=== PATIENT | female | born 1955 | race American Indian/Alaskan Native ===

== ENCOUNTER 2018-06-17 08:18 | Outpatient (CLI) | payer OTHER ==
--- NOTE | 2018-06-17 14:18 | Mammography Report ---
BILATERAL DIGITAL SCREENING MAMMOGRAM with CAD: 06/17/18 08:18:00 CLINICAL: Routine screening. COMPARISON:08/14/16 FINDINGS: The breasts are almost entirely fatty. No mass, architectural distortion or suspicious calcifications. IMPRESSION: No mammographic evidence of malignancy. BI-RADS CATEGORY: 1 - - Negative RECOMMENDATION: Routine mammographic screening in one year. COMMENT: Patient follow-up letters are generated by our [employer] application.
== END 2018-06-17 08:19 | disposition home or self-care (01) ==
LOC: MAMMO 08:18
PROVIDERS: ATTEND Internal Medicine
DX: Z12.31 Encounter for screening mammogram for malignant neoplasm of breast (principal)
CPT/HCPCS: 77067

== ENCOUNTER 2019-01-04 21:40 | Emergency (ER) | payer OTHER ==
--- NOTE | 2019-01-04 21:57 | Emergency Department Report ---
Blank Doc - Documentation Documentation: This is a 63-year-old female that presents with hypertension. Patient denies any headache. Stated has some blurry vision. This initial assessment diagnostic orders/clinical plan/treatment(s) is/are subject to change based on patient's health status, clinical progression and re- assessment by fellow clinical providers in the ED. Further treatment and workup at subsequent clinical providers discretion. Patient/guardians urged not to elope from ED s their condition may be serious if not clinically assessed and managed. Initial orders include: 1-Patient sent to MAIN ED for further evaluation and treatment
[2019-01-04 22:31] VITALS: BP 153/58
[2019-01-04 22:47] LABS: Basophils # (Auto) 0.1 K/mm3 (0.0-0.1); Basophils % (Auto) 0.6 % (0.0-1.8); Eosinophils # (Auto) 0.1 K/mm3 (0.0-0.4); Eosinophils % (Auto) 1.1 % (0.0-4.3); Hematocrit 41.8 % (30.3-42.9); Hemoglobin 13.8 gm/dl (10.1-14.3); Lymphocytes % (Auto) 25.7 % (13.4-35.0); Mean Corpuscular HGB Conc 33 % (30-34); Mean Corpuscular Volume 98 fl (79-97); Monocytes # (Auto) 1.1 K/mm3 (0.0-0.8); Monocytes % (Auto) 9.2 % (0.0-7.3); Platelet Count 241 K/mm3 (140-440); Red Blood Count 4.25 M/mm3 (3.65-5.03); Red Cell Distribution Width 12.3 % (13.2-15.2)
[2019-01-04 23:08] LABS: Alanine Aminotransferase 33 units/L (7-56); Albumin 3.6 g/dL (3.9-5); BUN/Creatinine Ratio 27; Blood Urea Nitrogen 19 mg/dL (7-17); Calcium 9.3 mg/dL (8.4-10.2); Hemolysis Index 15
--- NOTE | 2019-01-05 | Emergency Department Report ---
ED General Adult HPI - General Chief complaint: High BP Stated complaint: HBP Time Seen by Provider: 01/04/19 21:56 Source: patient Mode of arrival: Ambulatory Limitations: No Limitations - History of Present Illness Initial comments: 63-year-old female with history of hypertension presents the ED with elevated blood pressures at home. She states her blood pressure at home was 191/98. Patient reports she is compliant with her blood pressure medication. Patient denies headache, chest pain, nausea, vomiting. Patient states she had mild blurred vision, now resolved. -: This evening Severity scale (0 -10): 5 Improves with: none Worsens with: none Associated Symptoms: denies: chest pain, fever/chills, headaches, nausea/vo miting, shortness of breath Treatments Prior to Arrival: none - Related Data Allergies Allergy/AdvReac Type Severity Reaction Status Date / Time No Known Allergies Allergy Unverified 08/23/15 12:53 ED Review of Systems ROS: Stated complaint: HBP Other details as noted in HPI Comment: All other systems reviewed and negative Constitutional: denies: chills, fever Eyes: other (reports blurred vision earlier) Respiratory: denies: shortness of breath Cardiovascular: denies: chest pain Gastrointestinal: denies: nausea, vomiting Neurological: denies: headache, weakness, numbness, paresthesias, abnormal gait ED Past Medical Hx - Past Medical History Hx Hypertension: Yes - Surgical History Additional Surgical History: bilateral Breast reduction - Social History Smoking Status: Never Smoker Substance Use Type: None ED Physical Exam - General Limitations: No Limitations General appearance: alert, in no apparent distress - Head Head exam: Present: atraumatic, normocephalic - Eye Eye exam: Present: normal appearance - ENT ENT exam: Present: mucous membranes moist - Neck Neck exam: Present: normal inspection - Respiratory Respiratory exam: Present: normal lung sounds bilaterally. Absent: respiratory distress - Cardiovascular Cardiovascular Exam: Present: regular rate, normal rhythm - GI/Abdominal GI/Abdominal exam: Present: soft. Absent: distended, tenderness - Extremities Exam Extremities exam: Present: normal inspection - Neurological Exam Neurological exam: Present: alert, oriented X3, CN II-XII intact. Absent: motor sensory deficit - Psychiatric Psychiatric exam: Present: normal affect, normal mood - Skin Skin exam: Present: warm, dry, intact, normal color ED Course Vital Signs 01/04/19 01/04/19 01/04/19 21:45 22:15 22:30 Temperature 98.1 F 98.1 F Pulse Rate 66 66 Respiratory 16 15 Rate Blood Pressure 202/80 Blood Pressure 153/58 [Right] O2 Sat by Pulse 98 96 97 Oximetry ED Medical Decision Making - Lab Data Result diagrams: 01/04/19 22:08 01/04/19 22:08 - Medical Decision Making 63-year-old female presents to the ED with elevated blood pressures at home. Blood pressure improved to 153/58 here in ED. No focal neuro deficits, neuro exam normal. Labs unremarkable. Patient advised to keep a log of her blood pressures at home, and follow up with her PCP. Return precautions given. Critical care attestation.: If time is entered above; I have spent that time in minutes in the direct care of this critically ill patient, excluding procedure time. ED Disposition Clinical Impression: Essential hypertension Disposition: DC-01 TO HOME OR SELFCARE Is pt being admited?: No Condition: Stable Instructions: Hypertension (ED) Referrals: PRIMARY CARE [Primary Care Provider] - 3-5 Days Time of Disposition: 00:00
== END 2019-01-05 00:10 | disposition home or self-care (01) ==
LOC: ED 21:40
DX: I10 Essential (primary) hypertension (principal)
CPT/HCPCS: 36415; 80053; 85025

== ENCOUNTER 2019-06-01 17:49 | Emergency (ER) | payer OTHER ==
--- NOTE | 2019-06-01 18:00 | Event Note ---
ED Screening Note ED Screening Note: states that her blood pressure was elevated at her doctors appointment Dr. Thompson, PCP states her pressure was 200/80 pt states she had some lightheadedness states over the last couple days had some high sugar/high salt food pt takes metoprolol and losartan for her pressure, states she only took losartan today and takes metoprolol at night This initial assessment/diagnostic orders/clinical plan/treatment(s) is/are subject to change based on patients health status, clinical progression and re-assessment by fellow clinical providers in the ED. Further treatment and workup at subsequent clinical providers discretion. Patient/guardian urged not to elope from the ED as their condition may be serious if not clinically assessed and managed. Initial orders include: labs
[2019-06-01 18:36] LABS: Basophils # (Auto) 0.1 K/mm3 (0.0-0.1); Basophils % (Auto) 0.7 % (0.0-1.8); Eosinophils # (Auto) 0.1 K/mm3 (0.0-0.4); Eosinophils % (Auto) 1.2 % (0.0-4.3); Hematocrit 43.9 % (30.3-42.9); Hemoglobin 14.9 gm/dl (10.1-14.3); Lymphocytes # (Auto) 2.9 K/mm3 (1.2-5.4); Lymphocytes % (Auto) 29.7 % (13.4-35.0); Mean Corpuscular HGB Conc 34 % (30-34); Mean Corpuscular Hemoglobin 34 pg (28-32); Mean Corpuscular Volume 100 fl (79-97); Monocytes # (Auto) 0.7 K/mm3 (0.0-0.8); Monocytes % (Auto) 7.4 % (0.0-7.3); Platelet Count 222 K/mm3 (140-440); Red Blood Count 4.41 M/mm3 (3.65-5.03); Red Cell Distribution Width 13.2 % (13.2-15.2)
[2019-06-01 18:59] LABS: Alanine Aminotransferase 24 units/L (7-56); Albumin 3.7 g/dL (3.9-5); BUN/Creatinine Ratio 17; Blood Urea Nitrogen 12 mg/dL (7-17); Calcium 9.2 mg/dL (8.4-10.2); Hemolysis Index 24
--- NOTE | 2019-06-01 19:52 | Emergency Department Report ---
ED General Adult HPI - General Chief complaint: High BP Stated complaint: BP HIGH Time Seen by Provider: 06/01/19 17:56 Source: patient Mode of arrival: Ambulatory Limitations: No Limitations - History of Present Illness Initial comments: Patient is 63 years old female with history of hypertension on hydrochlorothiazide/losartan and metoprolol. Patient presented to the ER from her primary care physician after found to have a blood pressure of 216/115. Patient denied any headache, weakness numbness or tingling sensation. Patient also denies any chest pain or shortness of breath. - Related Data Allergies Allergy/AdvReac Type Severity Reaction Status Date / Time No Known Allergies Allergy Unverified 08/23/15 12:53 ED Review of Systems ROS: Stated complaint: BP HIGH Other details as noted in HPI Comment: All other systems reviewed and negative Constitutional: denies: chills, fever Respiratory: denies: cough, orthopnea, shortness of breath, SOB with exertion, SOB at rest, wheezing Cardiovascular: denies: chest pain, palpitations Gastrointestinal: denies: abdominal pain, nausea, vomiting Musculoskeletal: denies: back pain Neurological: denies: headache, weakness, numbness, paresthesias, confusion ED Past Medical Hx - Past Medical History Previous Medical History?: Yes Hx Hypertension: Yes - Surgical History Past Surgical History?: Yes Additional Surgical History: bilateral Breast reduction - Social History Smoking Status: Never Smoker Substance Use Type: Alcohol ED Physical Exam - General Limitations: No Limitations General appearance: alert, in no apparent distress - Head Head exam: Present: atraumatic, normocephalic, normal inspection - Eye Eye exam: Present: normal appearance, PERRL - ENT ENT exam: Present: normal exam, normal orophraynx, mucous membranes moist - Neck Neck exam: Present: normal inspection, full ROM. Absent: tenderness, meningismus, lymphadenopathy, thyromegaly - Respiratory Respiratory exam: Present: normal lung sounds bilaterally - Cardiovascular Cardiovascular Exam: Present: regular rate, normal rhythm, normal heart sounds - GI/Abdominal GI/Abdominal exam: Present: soft, normal bowel sounds. Absent: distended, tenderness, guarding, rebound, rigid, organomegaly, mass, bruit, pulsatile mass, hernia - Extremities Exam Extremities exam: Present: normal inspection, full ROM, normal capillary refill. Absent: calf tenderness - Back Exam Back exam: Present: normal inspection, full ROM. Absent: tenderness, CVA tenderness (R), CVA tenderness (L), muscle spasm, paraspinal tenderness, vertebral tenderness - Neurological Exam Neurological exam: Present: alert, oriented X3, CN II-XII intact, normal gait, reflexes normal - Psychiatric Psychiatric exam: Present: normal mood - Skin Skin exam: Present: warm, intact, normal color ED Course Vital Signs 06/01/19 06/01/19 06/01/19 17:56 19:55 21:02 Temperature 97.9 F Pulse Rate 63 55 L 58 L Respiratory 16 18 18 Rate Blood Pressure 216/91 Blood Pressure 211/106 182/86 [Right] O2 Sat by Pulse 98 97 97 Oximetry 06/01/19 21:52 Temperature Pulse Rate 61 Respiratory 19 Rate Blood Pressure Blood Pressure 167/81 [Right] O2 Sat by Pulse 97 Oximetry ED Medical Decision Making - Lab Data Result diagrams: 06/01/19 18:15 06/01/19 18:15 - Medical Decision Making Patient is 63 years old female with history of hypertension on hydrochlorothiazide/losartan and metoprolol. Patient presented to the ER from her primary care physician after found to have a blood pressure of 216/115. Patient denied any headache, weakness numbness or tingling sensation. Patient also denies any chest pain or shortness of breath. Patient received clonidine 0.2 mg, blood pressure improved to 167/81. Patient still denying any chest pain, shortness of breath, weakness numbness or tingling sensation. Patient will be discharged home and advised to follow-up with her primary care physician in the next 2-3 days and to return to the ER if symptoms are not improved. Critical care attestation.: If time is entered above; I have spent that time in minutes in the direct care of this critically ill patient, excluding procedure time. ED Disposition Clinical Impression: Accelerated hypertension Disposition: DC-01 TO HOME OR SELFCARE Is pt being admited?: No Condition: Stable Instructions: Hypertension (ED) Referrals: PRIMARY CARE, [Primary Care Provider] - 3-5 Days
[2019-06-01] MEDS ORDERED: CATAPRES ONE (19:56)
[2019-06-01] MEDS ORDERED: CATAPRES PO ONE (19:58)
[2019-06-01 21:53] VITALS: BP 167/81
== END 2019-06-01 22:02 | disposition home or self-care (01) ==
LOC: ED 17:49
DX: I10 Essential (primary) hypertension (principal); Z98.890 Other specified postprocedural states
CPT/HCPCS: 36415; 80053; 85025; 99283

== ENCOUNTER 2019-06-19 07:06 | Outpatient (CLI) | payer OTHER ==
--- NOTE | 2019-06-19 13:02 | Mammography Report ---
DIGITAL SCREENING MAMMOGRAM WITH CAD, 06/19/2019 INDICATION: Routine screening mammography. TECHNIQUE: Digital bilateral 2D mammography was obtained in the craniocaudal and mediolateral obliq ue projections. This examination was interpreted with the benefit of Computer-Aided Detection analysi s. COMPARISON: 08/23/2015, 06/17/2018 FINDINGS: Breast Density: The breasts are almost entirely fatty. There is no evidence of dominant mass, suspicious calcifications or architectural distortion in eithe r breast. Post reduction mammoplasty changes noted, stable. IMPRESSION: No evidence for malignancy. No interval change. BI-RADS Category 2: Benign. No mammographic evidence of malignancy. Recommend routine screening ma mmography in one year. A "normal" or negative report should not discourage follow up or biopsy of a clinically significant f inding. A written summary of these findings will be mailed to the patient. The patient will be entered into a mammography reporting system which will generate a reminder letter for the patient's next appointmen t at the appropriate interval. The [employer] recommends yearly mammograms starting at age 40 and continuing as l sha as a woman is in good health. Breast MRI is recommended for women with an approximate 20-25% or greater lifetime risk of breast cancer, including women with a strong family history of breast or ova annamaria cancer or who have been treated for Hodgkin's disease. Signer Name: Adrianne Lu MD Signed: 06/19/2019 12:58 PM Workstation Name: [id number]
== END 2019-06-19 07:07 | disposition home or self-care (01) ==
LOC: MAMMO 07:06
PROVIDERS: ATTEND Internal Medicine
DX: Z12.31 Encounter for screening mammogram for malignant neoplasm of breast (principal); I10 Essential (primary) hypertension
CPT/HCPCS: 77067

== ENCOUNTER 2021-01-12 06:00 | Emergency (ER) | payer MEDICARE ==
--- NOTE | 2021-01-12 06:15 | Event Note ---
ED Screening Note Date of service: 01/12/21 Time: 06:14 ED Screening Note: Patient is a 65-year-old -[place] female with a history of hypertension who presents to the ED with acute onset persistent lightheadedness, posterior scalp headache and persistently elevated blood pressure for the last 12 hours, worse in the last 6 hours. Patient states that the symptoms have been intermittent despite taking her blood pressure medications. Patient denies chest pain, shortness of breath, change in vision, syncope, seizures, cough, nausea and vomiting, diaphoresis or palpitations. This initial assessment/diagnostic orders/clinical plan/treatment(s) is/are subject to change based on patients health status, clinical progression and re- assessment by fellow clinical providers in the ED. Further treatment and workup at subsequent clinical providers discretion. Patient/guardian urged not to elope from the ED as their condition may be serious if not clinically assessed and managed. Initial orders include: EKG, CBC, CMP, troponin, chest x-ray
--- NOTE | 2021-01-12 06:33 | XRay Report ---
CHEST 1 VIEW 01/12/2021 6:33 AM INDICATION / CLINICAL INFORMATION: dyspnea. COMPARISON: None available. FINDINGS: SUPPORT DEVICES: None. HEART / MEDIASTINUM: No significant abnormality. LUNGS / PLEURA: No significant pulmonary or pleural abnormality. No pneumothorax. ADDITIONAL FINDINGS: No significant additional findings. IMPRESSION: 1. No acute findings. Signer Name: Jerson Carr MD Signed: 01/12/2021 6:29 AM Workstation Name: [id number]
[2021-01-12] MEDS ORDERED: cloNIDine 0.2 MG TAB PO ONE (06:36)
--- NOTE | 2021-01-12 06:40 | Emergency Department Report ---
HPI - General Chief Complaint: High BP Time Seen by Provider: 01/12/21 06:21 - HPI HPI: This is a 65-year-old -[place] female who presents to the emergency department from home with a complaint of high blood pressure. The patient has been checking her blood pressure throughout yesterday and says that it got as high as a systolic over 200. At one point it went down to about a systolic of 150 but then steadily increased back towards a systolic of 190 throughout the evening. This morning the patient checked her blood pressure again and once again she had a blood pressure with a systolic of 190 and came in for evaluation. Throughout yesterday and this morning, the patient says that she has had some intermittent mild discomfort to the back of her head and the complaint of some intermittent blurry vision. The patient also complains of s ome type of tingling or twinge in the left arm. She denies any chest pain, shortness of breath, numbness or paresthesias, slurred speech, swelling of the extremities. She has a past medical history of hypertension, hypothyroidism and high cholesterol. The patient has been compliant with her blood pressure medications, which include metoprolol, hydrochlorothiazide and losartan. She has not yet taken any medications this morning. Her primary care physician is a Dr. Diane Self. She denies any tobacco or illicit drug use. ED Past Medical Hx - Past Medical History Previous Medical History?: Yes Hx Hypertension: Yes - Surgical History Hx Breast Surgery: Yes Additional Surgical History: bilateral Breast reduction - Social History Smoking Status: Never Smoker Substance Use Type: None ED Review of Systems ROS: Stated complaint: HIGH BLOOD PRESSURE Other details as noted in HPI Comment: All other systems reviewed and negative Constitutional: denies: chills, fever Eyes: vision change (Intermittent). denies: eye pain ENT: denies: ear pain, throat pain Respiratory: denies: cough, shortness of breath Cardiovascular: denies: chest pain, palpitations Gastrointestinal: denies: abdominal pain, vomiting Genitourinary: denies: dysuria, discharge Musculoskeletal: denies: back pain, joint swelling Skin: denies: rash, lesions Neurological: headache (Intermittent). denies: weakness Physical Exam - Physical Exam Vital Signs: Vital Signs 01/12/21 06:09 Temperature 98.2 F Pulse Rate 59 L Respiratory 18 Rate Blood Pressure 202/84 O2 Sat by Pulse 97 Oximetry Physical Exam: GENERAL: The patient is well-developed well-nourished. HENT: Normocephalic. Atraumatic. Patient has moist mucous membranes. EYES: Extraocular motions are intact. No nystagmus. Visual acuity: OD 20/25, OS 20/25. NECK: Supple. Trachea is midline. CHEST/LUNGS: Clear to auscultation. There is no respiratory distress noted. HEART/CARDIOVASCULAR: Regular. There is no tachycardia. There is no murmur. ABDOMEN: Abdomen is soft, nontender. Patient has normal bowel sounds. There is no abdominal distention. SKIN: Skin is warm and dry. NEURO: The patient is awake, alert, and oriented. The patient is cooperative. The patient has no focal neurologic deficits. Normal speech. Cranial nerves II through XII grossly intact. No facial asymmetry. No pronator drift or dysmetria. MUSCULOSKELETAL: There is no tenderness or deformity. Radial pulse +2/4 and capillary refill less than 2 seconds to the affected left upper extremity. There is no limitation range of motion. ED Course Vital Signs 01/12/21 06:09 Temperature 98.2 F Pulse Rate 59 L Respiratory 18 Rate Blood Pressure 202/84 O2 Sat by Pulse 97 Oximetry ED Medical Decision Making - Lab Data Result diagrams: 01/12/21 06:38 01/12/21 06:38 Lab Results 01/12/21 01/12/21 01/12/21 Range/Units 06:38 06:38 06:38 WBC 9.5 (4.5-11.0) K/mm3 RBC 4.55 (3.65-5.03) M/mm3 Hgb 15.3 H (10.1-14.3) gm/dl Hct 45.5 H (30.3-42.9) % MCV 100 H (79-97) fl MCH 34 H (28-32) pg MCHC 34 (30-34) % RDW 12.5 L (13.2-15.2) % Plt Count 228 (140-440) K/mm3 Lymph % (Auto) 25.8 (13.4-35.0) % [place] % (Auto) 6.3 (0.0-7.3) % Eos % (Auto) 1.1 (0.0-4.3) % Baso % (Auto) 0.5 (0.0-1.8) % Lymph # (Auto) 2.4 (1.2-5.4) K/mm3 [place] # (Auto) 0.6 (0.0-0.8) K/mm3 Eos # (Auto) 0.1 (0.0-0.4) K/mm3 Baso # (Auto) 0.1 (0.0-0.1) K/mm3 Seg Neutrophils % 66.3 (40.0-70.0) % Seg Neutrophils # 6.3 (1.8-7.7) K/mm3 Sodium 140 (137-145) mmol/L Potassium 3.6 (3.6-5.0) mmol/L Chloride 101.7 (98-107) mmol/L Carbon Dioxide 33 H (22-30) mmol/L Anion Gap 9 mmol/L BUN 17 (7-17) mg/dL Creatinine 0.8 (0.6-1.2) mg/dL Estimated GFR > 60 ml/min BUN/Creatinine Ratio 21 % Glucose 114 H (65-100) mg/dL Calcium 9.4 (8.4-10.2) mg/dL Total Bilirubin 0.50 (0.1-1.2) mg/dL AST 28 (5-40) units/L ALT 27 (7-56) units/L Alkaline Phosphatase 88 (35-129) units/L Troponin T < 0.010 (0.00-0.029) ng/mL Total Protein 7.3 (6.3-8.2) g/dL Albumin 3.8 L (3.9-5) g/dL Albumin/Globulin Ratio 1.1 % TSH 16.450 H (0.270-4.200) mlU/mL Free T4 (0.76-1.46) ng/dL 01/12/21 Range/Units 07:29 WBC (4.5-11.0) K/mm3 RBC (3.65-5.03) M/mm3 Hgb (10.1-14.3) gm/dl Hct (30.3-42.9) % MCV (79-97) fl MCH (28-32) pg MCHC (30-34) % RDW (13.2-15.2) % Plt Count (140-440) K/mm3 Lymph % (Auto) (13.4-35.0) % [place] % (Auto) (0.0-7.3) % Eos % (Auto) (0.0-4.3) % Baso % (Auto) (0.0-1.8) % Lymph # (Auto) (1.2-5.4) K/mm3 [place] # (Auto) (0.0-0.8) K/mm3 Eos # (Auto) (0.0-0.4) K/mm3 Baso # (Auto) (0.0-0.1) K/mm3 Seg Neutrophils % (40.0-70.0) % Seg Neutrophils # (1.8-7.7) K/mm3 Sodium (137-145) mmol/L Potassium (3.6-5.0) mmol/L Chloride (98-107) mmol/L Carbon Dioxide (22-30) mmol/L Anion Gap mmol/L BUN (7-17) mg/dL Creatinine (0.6-1.2) mg/dL Estimated GFR ml/min BUN/Creatinine Ratio % Glucose (65-100) mg/dL Calcium (8.4-10.2) mg/dL Total Bilirubin (0.1-1.2) mg/dL AST (5-40) units/L ALT (7-56) units/L Alkaline Phosphatase (35-129) units/L Troponin T (0.00-0.029) ng/mL Total Protein (6.3-8.2) g/dL Albumin (3.9-5) g/dL Albumin/Globulin Ratio % TSH (0.270-4.200) mlU/mL Free T4 1.02 (0.76-1.46) ng/dL - EKG Data -: EKG Interpreted by Dc EKG shows normal: sinus rhythm, axis, intervals, QRS complexes (LVH, Q waves to the septal leads), ST-T waves (T wave inversions to the anterolateral leads) Rate: bradycardia (56 bpm) - EKG Data When compared to previous EKG there are: no significant change (Other than current T wave inversions are new versus more pronounced) Interpretation: other (Sinus rhythm at 56 bpm, normal axis, normal intervals, Q waves to the septal leads, T wave inversions to the anterolateral leads. No ST elevation [place].) - Radiology Data Radiology results: report reviewed, image reviewed interpreted by me: Chest x-ray does not show any acute process. There are no pleural effusions, obvious pneumonia and there is no pneumothorax. No significant cardiomegaly. CT head/brain wo con INDICATION: Headache. TECHNIQUE: Routine CT head without contrast. All CT scans at this location are performed using CT dose reduction for ALARA by means of automated exposure control. COMPARISON: None. FINDINGS: BRAIN / INTRACRANIAL CONTENTS: No acute hemorrhage, mass effect, midline shift, or hydrocephalus. No appreciable acute large territorial or lacunar infarct. No chronic infarct. Age-commensurate ventricular and cisternal/sulcal prominence. ORBITS: No significant abnormality of visualized orbits. SINUSES / MASTOIDS: No significant abnormality of visualized sinuses and mastoid air cells. ADDITIONAL FINDINGS: None. IMPRESSION: 1. No acute intracranial abnormality. - Medical Decision Making This patient presents with a complaint of elevated and uncontrolled blood pressure. She also says that she has been having some intermittent posterior head pain, intermittent blurry vision. On examination she does not have any focal, motor or sensory deficits and her cranial nerves are intact. CT scan of the head without contrast did not show any bleed, shift, mass, large vessel occlusion, or any other acute process. The patient denies any current blurry vision and her visual acuity is good at 20/25 in each eye. An EKG was done that did not have any morphology consistent with ST elevation myocardial infarction. Patient's labs were unremarkable including CBC, metabolic panel, and a negative troponin. The TSH level was quite elevated at 16 but there was a normal free T4. The patient is currently on levothyroxine for a history of hypothyroidism. The patient's blood pressure came down to a reasonable level without any antihypertensive medication given. For all these reasons the patient appears safe for discharge home at this time. She has been instructed to follow-up with her primary care physician about the labile blood pressures. She has been given an outpatient referral for ophthalmology for the intermittent blurred vision. She will return to the [facility] emergency department with any worsening of her symptoms or with any acute distress. Critical Care Time: No Critical care attestation.: If time is entered above; I have spent that time in minutes in the direct care of this critically ill patient, excluding procedure time. ED Disposition Clinical Impression: Blurred vision Hypertension Qualifiers: Hypertension type: essential hypertension Qualified Code(s): I10 - Essential (primary) hypertension Disposition: DC-01 TO HOME OR SELFCARE Is pt being admited?: No Condition: Stable Instructions: Blurred Vision, Adult, Hypertension, Adult, Hypertension (ED) Additional Instructions: Please follow-up with your primary care physician in the next few days. Continue with your blood pressure medications. Try to stay away from foods that are high in salt and any caffeinated products. Keep a blood pressure log. I have given you a referral for a local rigging slinger, Dr. Zach Dhaliwal, to follow-up regarding the intermittent blurry vision. Return to the emergency department with any worsening of your symptoms, new or concerning symptoms not addressed during this current emergency department visit, or with any acute distress. Referrals: MICHLELE SELF PA [Primary Care Provider] - 3-5 Days ZACH DHALIWAL MD [Staff Physician] - 3-5 Days Time of Disposition: 08:29 - Assessment Assessment Interval: Baseline - Level of Consciousness 1a. Level of Consciousness: alert/keenly responsive - LOC Questions 1b. LOC Questions: answers both correctly - LOC Command 1c. LOC Commands: performs tasks correctly - Best Gaze 2. Best Gaze: normal - Visual 3. Visual: no visual loss - Facial Palsy 4. Facial Palsy: normal symmetrical movement - Motor Arm 5a. Motor Arm Left: no drift 5b. Motor Arm Right: no drift - Motor Leg 6a. Motor Leg Left: no drift 6b. Motor Leg Right: no drift - Limb Ataxia 7. Limb Ataxia: absent - Sensory 8. Sensory: normal - Best Language 9. Best Language: no aphasia - Dysarthria 10. Dysarthria: normal - Extinction and Inattention 11. Extinction/Inattention: no abnormality - Scoring Total Score: 0 Stroke Severity: No Stroke Symptoms
[2021-01-12 06:58] LABS: Basophils # (Auto) 0.1 K/mm3 (0.0-0.1); Basophils % (Auto) 0.5 % (0.0-1.8); Eosinophils # (Auto) 0.1 K/mm3 (0.0-0.4); Eosinophils % (Auto) 1.1 % (0.0-4.3); Hematocrit 45.5 % (30.3-42.9); Hemoglobin 15.3 gm/dl (10.1-14.3); Lymphocytes # (Auto) 2.4 K/mm3 (1.2-5.4); Lymphocytes % (Auto) 25.8 % (13.4-35.0); Mean Corpuscular HGB Conc 34 % (30-34); Mean Corpuscular Volume 100 fl (79-97); Monocytes # (Auto) 0.6 K/mm3 (0.0-0.8); Monocytes % (Auto) 6.3 % (0.0-7.3); Platelet Count 228 K/mm3 (140-440); Red Blood Count 4.55 M/mm3 (3.65-5.03); Red Cell Distribution Width 12.5 % (13.2-15.2)
[2021-01-12 07:15] LABS: Alanine Aminotransferase 27 units/L (7-56); Albumin 3.8 g/dL (3.9-5); BUN/Creatinine Ratio 21; Blood Urea Nitrogen 17 mg/dL (7-17); Calcium 9.4 mg/dL (8.4-10.2); Hemolysis Index 7
--- NOTE | 2021-01-12 08:03 | Cat Scan Report ---
CT head/brain wo con INDICATION: Headache. TECHNIQUE: Routine CT head without contrast. All CT scans at this location are performed using CT dos e reduction for ALARA by means of automated exposure control. COMPARISON: None. FINDINGS: BRAIN / INTRACRANIAL CONTENTS: No acute hemorrhage, mass effect, midline shift, or hydrocephalus. No appreciable acute large territorial or lacunar infarct. No chronic infarct. Age-commensurate ventricu lar and cisternal/sulcal prominence. ORBITS: No significant abnormality of visualized orbits. SINUSES / MASTOIDS: No significant abnormality of visualized sinuses and mastoid air cells. ADDITIONAL FINDINGS: None. IMPRESSION: 1. No acute intracranial abnormality. Signer Name: Jerson Carr MD Signed: 01/12/2021 7:58 AM Workstation Name: [email or web address]
[2021-01-12 09:09] VITALS: BP 134/76
== END 2021-01-12 09:09 | disposition home or self-care (01) ==
LOC: ED 06:00
DX: H53.8 Other visual disturbances (principal); I10 Essential (primary) hypertension; Z98.890 Other specified postprocedural states
CPT/HCPCS: 36415; 70450; 71045; 80053; 84439; 84443; 84484; 85025; 93005